=== PATIENT | female | born 1990 | race Two or more races ===

== ENCOUNTER 2023-04-27 14:18 | Outpatient (CLI) | payer OTHER ==
[~2023-04-27] VITALS: Ht 157.5 cm; Wt 74.8 kg
[2023-04-27] MEDS ORDERED: PRENATAL TABLE1 EAC1 PO (14:27)
== END 2023-04-27 20:01 | disposition left against medical advice (07) ==
LOC: LDR 14:18 → OBS/DEL 14:18 → LDR 20:01 → EDSTATUS 05-03 13:22
PROVIDERS: ATTEND Obstetrics & Gynecology
DX: O46.8X3 Other antepartum hemorrhage, third trimester (principal); Z3A.29 29 weeks gestation of pregnancy; Z20.822 Contact with and (suspected) exposure to COVID-19; Z88.5 Allergy status to narcotic agent; Z88.6 Allergy status to analgesic agent; Z91.040 Latex allergy status
CPT/HCPCS: 36415; 96374; 99282; J0290